=== PATIENT | female | born 1990 | race African-American/Black ===

== ENCOUNTER 2021-01-14 13:09 | Outpatient (CLI) | payer MEDICARE ==
[~2021-01-14] VITALS: Ht 160 cm; Wt 65.0 kg
[2021-01-14 14:42] LABS: MICROSCOPIC INDICATED
[2021-01-14 14:51] LABS: AMPHETAMINE SCREEN, URINE Negative (Negative); BARBITURATE SCREEN, URINE Negative (Negative); BENZODIAZEPINE SCREEN, URINE Negative (Negative); CANNABINOID SCREEN, URINE Negative (Negative); COCAINE SCREEN, URINE Negative (Negative)
[2021-01-14 14:55] LABS: METHADONE SCREEN, URINE Negative (Negative); OPIATE SCREEN, URINE Negative (Negative)
== END 2021-01-14 14:10 | disposition home or self-care (01) ==
LOC: LDOP 13:09
PROVIDERS: ATTEND Obstetrics & Gynecology
DX: O26.893 Other specified pregnancy related conditions, third trimester (principal); Z3A.34 34 weeks gestation of pregnancy
CPT/HCPCS: 59025; 80307; 81001; 87086; 87147

== ENCOUNTER 2021-01-22 08:17 | Outpatient (CLI) | payer MEDICARE ==
[~2021-01-22] VITALS: Ht 160 cm; Wt 62.7 kg
[2021-01-22 08:47] VITALS: BP 119/79
[2021-01-22 09:57] LABS: MICROSCOPIC INDICATED
== END 2021-01-22 13:22 | disposition home or self-care (01) ==
LOC: LDOP 08:17
PROVIDERS: ATTEND Obstetrics & Gynecology
DX: O26.893 Other specified pregnancy related conditions, third trimester (principal); M79.604 Pain in right leg; Z3A.35 35 weeks gestation of pregnancy
CPT/HCPCS: 36415; 59025; 81001; 86592; 86762; 86803; 86850; 86900; 87086; 87340; 87535; 87806; G0475

== ENCOUNTER 2021-01-29 18:37 | Outpatient (CLI) | payer MEDICARE ==
[2021-02-03] MEDS ORDERED: METOCLOPRAMIDE 5 MG/ML, 2ML ONE (06:29)
[2021-02-03] MEDS ORDERED: SODIUM CITRATE/CITRIC ACID 15 ML UDC ONE (06:29)
[2021-02-03] MEDS ORDERED: NEWBORN KIT ONE (06:29)
[2021-02-03] MEDS ORDERED: FAMO10TA31 PO (09:13)
[2021-02-05] MEDS ORDERED: OXYC1TAB14 PO (07:51)
[2021-02-05] MEDS ORDERED: IBUP-1223 PO (07:51)
[2021-02-05] MEDS ORDERED: DOCU-131 PO (07:51)
== END 2021-01-29 23:59 | disposition home or self-care (01) ==
LOC: LDOP 18:37
PROVIDERS: ATTEND Obstetrics & Gynecology
DX: Z02.9 Encounter for administrative examinations, unspecified (principal)

== ENCOUNTER 2021-01-29 18:58 | Emergency (ER) | payer MEDICARE ==
[~2021-01-29] VITALS: Ht 160 cm; Wt 62.0 kg
--- NOTE | 2021-01-29 19:01 | NUR ---
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 Call lemus in reach, side rails up. AIDET provided waiting for ERP evaluation.
--- NOTE | 2021-01-29 19:02 | NUR ---
Patient presents to ER c/o LLQ pain, vomiting "white seeds," sore throat, CP x4 days. Patient is 37 weeks ; states baby movement has been normal. Seen by L&D GRANULATOR OPERATOR. Patient did not want the baby to be checked due to normal baby movement. [id number]. Patient states she had a hx of gastric problems x2 months before and did not get it resolved. Patient denies urinary symptoms or diarrhea. Patient is in NAD. Respirations even and unlabored.
--- NOTE | 2021-01-29 19:03 | NUR ---
Pt with hx of 15 TAB's and 2 live births.
--- NOTE | 2021-01-29 19:34 | NUR ---
PT RESTING IN BED. VSS. PT IN NAD.
[2021-01-29] MEDS ORDERED: METOCLOPRAMIDE 5 MG/ML, 2ML IVPush ONE (20:30)
[2021-01-29] MEDS ORDERED: SODIUM CHLORIDE 0.9% 1,000ML IVBOLUS ONE (20:30)
[2021-01-29] MEDS ORDERED: SODIUM CHLORIDE FLUSH 10ML SYR IVF ONE (20:30)
[2021-01-29] MEDS ORDERED: METOCLOPRAMIDE 5 MG/ML, 2ML ONE (20:45)
[2021-01-29 20:48] LABS: BASOPHILS % (AUTO) 1 % (0-1); EOSINOPHILS % (AUTO) 0 % (1-7); LYMPHOCYTES % (AUTO) 33 % (22-44); MEAN CORPUSCULAR HEMOGLOBIN 33.3 pg (27.0-34.8); MEAN CORPUSCULAR HGB CONC 33.8 g/dL (32.4-35.8); MEAN PLATELET VOLUME 8.7 fL (7.4-10.4); MONOCYTES % (AUTO) 6 % (2-9); NEUTROPHILS % (AUTO) 60 % (42-75); PLATELET COUNT 231 x10^3/uL (130-400); RED BLOOD COUNT 3.48 x10^6/uL (3.82-5.3); RED CELL DISTRIBUTION WIDTH 12.9 % (9.6-15.2)
[2021-01-29 20:49] LABS: MD NO
[2021-01-29 21:00] LABS: ALBUMIN 2.7 g/dL (3.4-5.0); ANION GAP 7 mmol/L (5-15); CALCIUM 8.7 mg/dL (8.5-10.1); CHLORIDE 108 mmol/L (98-107)
[2021-01-29 21:07] LABS: ALANINE AMINOTRANSFERASE 23 U/L (12-78); ALKALINE PHOSPHATASE 122 U/L (45-117); BILIRUBIN,TOTAL 0.3 mg/dL (0.2-1.0); CREATININE 1.13 mg/dL (0.55-1.02); TOTAL PROTEIN 6.8 g/dL (6.4-8.2)
--- NOTE | 2021-01-29 21:45 | NUR ---
PT RESTING IN BED ATTACHED TO MONITORS. VSS. STATING SHE FEELS A LOT BETTER AFTER SHE GOT HER MEDICATION.
--- NOTE | 2021-01-29 22:31 | NUR ---
PT GIVEN WATER AND JUICE FOR PO CHALLANEGE. PASSED CHALLENGE AND TOLERATED WELL.
[2021-01-29 23:01] VITALS: BP 115/67
== END 2021-01-29 23:05 | disposition home or self-care (01) ==
LOC: ED 22:36
DX: O26.893 Other specified pregnancy related conditions, third trimester (principal); R11.2 Nausea with vomiting, unspecified; K21.00 Gastro-esophageal reflux disease with esophagitis, without bleeding; K29.50 Unspecified chronic gastritis without bleeding; Z3A.39 39 weeks gestation of pregnancy
CPT/HCPCS: 36415; 80053; 83690; 85025; 93005; 96374; 99284; J2765; J7030

== ENCOUNTER 2021-02-08 19:52 | Emergency (ER) | payer MEDICARE ==
[~2021-02-08] VITALS: Ht 160 cm; Wt 62.0 kg
[~2021-02-08 19:52] MED LIST: DOCU-131 PO; FAMO10TA31 PO; IBUP-1223 PO; OXYC1TAB14 PO
[2021-02-08 19:55] VITALS: BP 157/89
[2021-02-08 20:42] LABS: BASOPHILS % (AUTO) 1 % (0-1); EOSINOPHILS % (AUTO) 2 % (1-7); LYMPHOCYTES % (AUTO) 27 % (22-44); MEAN CORPUSCULAR HEMOGLOBIN 33.5 pg (27.0-34.8); MEAN CORPUSCULAR HGB CONC 34.1 g/dL (32.4-35.8); MEAN PLATELET VOLUME 7.1 fL (7.4-10.4); MONOCYTES % (AUTO) 6 % (2-9); NEUTROPHILS % (AUTO) 64 % (42-75); PLATELET COUNT 325 x10^3/uL (130-400); RED BLOOD COUNT 3.13 x10^6/uL (3.82-5.3); RED CELL DISTRIBUTION WIDTH 13.2 % (9.6-15.2)
[2021-02-08 20:43] LABS: MD NO
[2021-02-08 20:53] LABS: ALANINE AMINOTRANSFERASE 92 U/L (12-78); ALBUMIN 2.7 g/dL (3.4-5.0); ANION GAP 4 mmol/L (5-15); CHLORIDE 109 mmol/L (98-107); CREATININE 1.01 mg/dL (0.55-1.02)
[2021-02-08 20:57] LABS: ALKALINE PHOSPHATASE 109 U/L (45-117); BILIRUBIN,TOTAL 0.3 mg/dL (0.2-1.0); TOTAL PROTEIN 6.9 g/dL (6.4-8.2); TROPONIN I < 0.015 ng/mL (0.000-0.045)
== END 2021-02-08 22:13 | disposition home or self-care (01) ==
LOC: ED 22:08
DX: J20.9 Acute bronchitis, unspecified (principal); K21.00 Gastro-esophageal reflux disease with esophagitis, without bleeding; R94.5 Abnormal results of liver function studies; R94.31 Abnormal electrocardiogram [ECG] [EKG]; Z88.0 Allergy status to penicillin
CPT/HCPCS: 36415; 71045; 80053; 84484; 85025; 93005; 99285